=== PATIENT | male | born 2000 | race Caucasian/White ===

== ENCOUNTER 2022-08-27 20:25 | Emergency (ER) | payer OTHER, SELFPAY ==
[2022-08-27 20:38] VITALS: BP 121/70; PULSE 102; RESP 18; TEMP 36.8; O2SAT 97; BMI 25.0
--- NOTE | 2022-08-27 22:34 | ED.GENADULT ---
HPI - General Adult General Chief complaint: Wound/Laceration Stated complaint: Cut left hand Time Seen by Provider: 08/27/22 22:05 Source: patient, RN notes reviewed and old records reviewed Mode of arrival: ambulatory Limitations: no limitations History of Present Illness HPI narrative: 21-year-old male presents for evaluation of a laceration to his left hand Patient accidentally cut the back of his left hand just proximal to the order finger He cut it with a knife while fishing Unknown last tetanus He is able to move all fingers Related Data Allergies Allergy/AdvReac Type Severity Reaction Status Date / Time No Known Allergies Allergy Unverified 12/18/19 16:45 Review of Systems Integumentary/Breasts: Comments: Laceration to the back of the left hand PMFSH Social History Social History Advance Directives: No Advance Directives Information Provided: No Physical Exam ED Vital Signs: Vital Signs - 24 hr 08/27/22 20:38 Temperature 98.2 F Pulse Rate 102 H Respiratory Rate 18 Blood Pressure 121/70 Pulse Oximetry 97 Oxygen Delivery Method Room Air BMI result Body Mass Index 25.0 Const General: healthy appearing, comfortable, no acute distress, alert and awake Nutritional Appearance: well nourished Orientation/consciousness: patient oriented x3 Skin Other: Small, 2 cm curvilinear laceration to the dorsal surface of left hand just proximal to the 2nd MCP joint. General skin exam: no rashes or lesions noted and elasticity normal Neuro General: patient oriented x3 Cranial nerves: Yes Bilaterally intact EOM present Cognition (Neuro): normal cognition Extrem Other: Moving all extremities well without any obvious deformities. Notably, the patient is able to flex his left 2nd finger completely and fully extend the finger at the MCP joint Procedures Laceration Laceration 1: Site: hand Side (If applicable): left Size (cm): 2 Description: linear and clean Depth: simple, single layer Local Anesthetic: lidocaine 1% and with epi Amount of anesthesia used (mL): 1.5 Pre-repair: wound explored, irrigated extensively and deep structures intact Skin layer closed with: nylon Size (cm): 5-0 Number of sutures: 3 Technique: simple, interrupted Medical Decision Making Medical Decision Making MDM Narrative: Patient had a small laceration, this was repaired, see procedure note. Tetanus was updated as well Differential Diagnosis Laceration Skin tear Puncture wound Abrasion Discharge Plan Discharge Clinical Impression: Laceration Patient Disposition: Home, Self-Care Instructions: Laceration (ED) Additional Instructions: Keep the area clean and dry. These sutures should be removed in 7-10 days. You can make an appoint with your primary doctor or return to the ER Your tetanus was updated
[2022-08-27] MEDS: Diphth,Pertus(ACell),Tet Adult 0.5 ML SYRINGE IM (22:54)
--- NOTE | 2022-08-27 22:57 | PC.NURSE ---
tdap given right deltoid, pt tolerated well.
== END 2022-08-27 23:05 | disposition home or self-care (01) ==
PROVIDERS: Emergency Provider Emergency Medicine
DX: S61.412A Laceration without foreign body of left hand, initial encounter (principal); S60.512A Abrasion of left hand, initial encounter; W26.0XXA Contact with knife, initial encounter; Y93.9 Activity, unspecified; Y92.9 Unspecified place or not applicable; Y99.9 Unspecified external cause status; Z23 Encounter for immunization
CPT/HCPCS: 12041; 90471; 90715; 99282; 99284

== ENCOUNTER 2023-05-07 09:52 | Outpatient (AMB) | payer OTHER, SELFPAY ==
--- NOTE | 2023-05-07 11:04 | AM.OFFWIN_ITS ---
Intake Vital Signs 05/07/23 11:49 Height 5 ft 5 in Weight 71.214 kg BMI 26.1 BP 116/72 Pulse 88 Pulse Source Pulse Oximeter Temp 98.2 F Temp Source Temporal Artery Scan Pulse Oximetry (%) 99 Oxygen Delivery Method Room Air Intake Visit Reasons: EP STD testing [phone] Intake Note: pt is here today for STD Patient Tobacco Use Status: Current everyday Tobacco user Allergies No Known Allergies Allergy (Verified 05/07/23 11:50) Do you need a note to return to daycare/school/sports/work: No HPI HPI Comments History of Present Illness Details 1105 22 year old male presents requesting STD testing. ? possible encounter to chlamydia. No sx at this time. No hx of same. Normal physical exam Will rule out STD STD panel collected and pending. Educated patient on diagnosis and treatment plan, answered all question, patient verbalizes understanding. At this time patient will be discharged home, advised to return with new or worsening symptoms. Educated on worrisome signs and symptoms and when to return. At this time I feel comfortable discharge home. Patient agrees to prophylactic treatment for gonorrhea, chlamydia and trichomonas. 500mg IM ceftriaxone has been given here and scripts for doxycycline 100 mg po BID X 7 days and metronidazole 500 mg po BID X 7 days have been given to the patient. Educated on safe sex practices, full pannel STD testing and speaking to? partners on possible STD. [facility] Social History Patient Tobacco Use Status: Current everyday Tobacco user Review of Systems Const All systems reviewed & are unremarkable except as noted in HPI and below Physical Exam Vital Signs: vss Appearance: Alert.? Oriented X3.? No acute distress.? Head: Normocephalic, atraumatic, no step-offs or deformities Eyes: Pupils equal, round and reactive to light.? Neck: Normal inspection.? Neck supple.? CVS: Pulses normal.? Respiratory: No respiratory distress.? Skin: Skin warm and dry.? Normal skin color.? Normal skin turgor.? Extremities: No lower extremity edema.? No calf ttp. 5/5 strength to bilateral upper and lower extremities Neuro: Oriented X 3.? No motor deficit.? No sensory deficit. CN 2-12 intact Assessment & Plan Assessment & Plan (1) Screening for STD (sexually transmitted disease): Code(s): Z11.3 - Encounter for screening for infections with a predominantly sexual mode of transmission Plan Take your medications as prescribed. If you were prescribed antibiotics today, it is important that you take your medication to their entirety, do not skip any doses, do not finish them early. Follow-up with your primary care provider this week. Return to the emergency department with new or worsening symptoms. Such as fevers, chills, chest pain, shortness of breath, nausea, vomiting, dizziness, headache, vision changes, lethargy In case of emergency call 911 You were treated here today with ceftriaxone, a medication that treats gonorrhea. I have sent to your pharmacy Metronidazole that covers trichomonas, and Doxycycline which covers for chlamydia. Please be reevaluated by a healthcare provider after completing your antibiotics. Do not stop them early, do not skip any doses. Until you are reevaluated by a health care provider please practice safe sex as disucussed. Please also have a conversation with your sexual partners.? I also advise you to obtain full panel STD testing to test for other STDs including HIV, Hepatitis B & C and syphilis with your PCP or a local clinic. Orders: Orders CT NG by PCR Today Z11.3 - Encounter for screening for infections with a predominantly sexual mode of transmission AMB Ceftriaxone Injection Today Z11.3 - Encounter for screening for infections with a predominantly sexual mode of transmission Medications: New metronidazole 500 mg PO BID 7 days 14 tabs 0RF doxycycline hyclate 100 mg PO BID 7 days 14 caps 0RF ceftriaxone 500 mg IM ONCE 1 ea 0RF Z11.3 - Encounter for screening for infections with a predominantly sexual mode of transmission Coding Level of Care Code Est Pt Level 3 (46568) Diagnoses Screening for STD (sexually transmitted disease) Z11.3
[2023-05-07 11:49] VITALS: BP 116/72; PULSE 88; TEMP 36.8; O2SAT 99; BMI 26.1
== END 2023-05-07 12:43 | disposition home or self-care (01) ==
PROVIDERS: Visit Provider Physician Assistant
DX: Z11.3 Encounter for screening for infections with a predominantly sexual mode of transmission (principal)
CPT/HCPCS: 96372; 99213; J0696

== ENCOUNTER 2023-05-07 13:19 | Outpatient (REF) | payer OTHER, SELFPAY ==
[2023-05-07 15:29] LABS: CT PCR NOT DETECTED (Not Detect.); NG PCR NOT DETECTED (Not Detect.)
== END 2023-05-07 13:20 | disposition home or self-care (01) ==
LOC: HO.HMGCLNP 13:19
PROVIDERS: Visit Provider Physician Assistant
DX: Z20.2 Contact with and (suspected) exposure to infections with a predominantly sexual mode of transmission (principal)
CPT/HCPCS: 0353U

== ENCOUNTER 2023-05-07 16:38 | Outpatient (REF) | payer OTHER, SELFPAY | END 2023-05-07 16:39 | disposition home or self-care (01) | LOC: HO.LAB 16:38 | PROVIDERS: Visit Provider Physician Assistant | DX: Z13.89 Encounter for screening for other disorder (principal) ==

== ENCOUNTER 2023-08-14 08:06 | Emergency (ER) | payer OTHER, SELFPAY ==
--- NOTE | ~2023-08-14 | XR_ITS ---
EXAMINATION: LEFT CLAVICLE, LEFT SHOULDER CLINICAL INFORMATION: Pain after injury COMPARISON: None available. TECHNIQUE: 2 views left clavicle, 3 views left shoulder FINDINGS: There is a comminuted fracture involving the mid clavicle with a middle fragment measuring 2.9 cm in length. This fragment is angled downwards and there is separation of the most proximal and distal fragments by about 2 cm. The acromioclavicular joint appears normal. The glenohumeral joint appears normal. The scapula and visualized humerus are unremarkable. No rib fractures are visualized. XR/XR shoulder LT min 2V IMPRESSION: Comminuted mid clavicular fracture as described above.
--- NOTE | ~2023-08-14 | XR_ITS ---
EXAMINATION: LEFT CLAVICLE, LEFT SHOULDER CLINICAL INFORMATION: Pain after injury COMPARISON: None available. TECHNIQUE: 2 views left clavicle, 3 views left shoulder FINDINGS: There is a comminuted fracture involving the mid clavicle with a middle fragment measuring 2.9 cm in length. This fragment is angled downwards and there is separation of the most proximal and distal fragments by about 2 cm. The acromioclavicular joint appears normal. The glenohumeral joint appears normal. The scapula and visualized humerus are unremarkable. No rib fractures are visualized. XR/XR clavicle LT IMPRESSION: Comminuted mid clavicular fracture as described above.
[2023-08-14 08:13] VITALS: BP 131/90; PULSE 90; RESP 16; TEMP 36.6; O2SAT 97; BMI 27.0
--- NOTE | 2023-08-14 08:27 | ED.EXTPRO ---
HPI - Extremity Problem General Chief complaint: Extremity Injury, Upper Stated complaint: L Shoulder Pain Injury 08/12/23 Time Seen by Provider: 08/14/23 08:25 Source: patient Mode of arrival: ambulatory Limitations: no limitations History of Present Illness HPI Narrative: 22 yo right-hand dominant male presenting for evaluation of left shoulder pain s/p injury 2 days ago. Patient states he was play fighting on Sunday when he fell directly on his left shoulder. Denies hearing or feeling pop or crack. Denies numbness, tingling, or radiation of pain. Pain localized to left clavicular region. Patient denies any additional injuries at this time. States he may have hit the side of his face, but denies pain, headaches, or changes in vision. Denies previous injury to shoulder. Describes the pain as 8/10 and constant. He last took Tylenol last night and states it helps to relieve pain. Able to internally and externally rotate left arm, but unable to move shoulder. MD Complaint: joint pain Onset (ago): day(s) (2) Pain Consistency: constant Location: left and upper extremity Severity scale (1-10): 8 Radiation: none Relieving factors: medication (Tylenol) Associated symptoms: denies other symptoms Context: other (Trauma) Related Data Previous Rx's ?Medication ?Instructions ?Recorded doxycycline hyclate 100 mg capsule 100 mg PO BID 7 days #14 caps 05/07/23 metronidazole 500 mg tablet 500 mg PO BID 7 days #14 tabs 05/07/23 ibuprofen 600 mg tablet 600 mg PO Q8H PRN pain #14 tabs 08/14/23 Allergies Allergy/AdvReac Type Severity Reaction Status Date / Time No Known Allergies Allergy Verified 08/14/23 08:16 Review of Systems Review of Systems: Yes all other systems are reviewed and are negative [facility] Social History Social History Patient Tobacco Use Status: Current everyday Tobacco user Advance Directives: No Advance Directives Information Provided: Yes Physical Exam Vital Signs: Vital Signs: Last Vital Signs Temp 97.8 F 08/14/23 08:13 Pulse 87 08/14/23 10:47 Resp 14 08/14/23 10:47 BP 125/83 08/14/23 10:47 Pulse Ox 95 08/14/23 10:47 O2 Del Method Room Air 08/14/23 10:47 BMI result Body Mass Index 27.0 Appearance: Alert. Oriented X3. No acute distress. Head: normocephalic, atraumatic. Eyes: Pupils equal, round and reactive to light. ENT: Pharynx normal. Neck: Normal inspection. Neck supple. CVS: Normal heart rate and rhythm. Pulses normal. Respiratory: No respiratory distress. Breath sounds normal. Abdomen: Soft and nontender. Skin: Skin warm and dry. Normal skin color. Normal skin turgor. No rashes. Extremities: Edema and ecchymosis of left clavicular region. Tenderness to palpation. Able to internally and externally rotate arm, unable to perform ROM of shoulder joint. Neurovascularly intact distally Neuro/psych: Oriented X 3. No motor deficit. No sensory deficit. Normal speech and cognition. Medications Administered Discontinued Medications Generic Name Dose Route Start Last Admin Trade Name Freq PRN Reason Stop Dose Admin Ibuprofen 600 mg 08/14/23 09:21 08/14/23 09:43 Ibuprofen 600 Mg Tablet PO 08/14/23 09:22 600 mg ONCE ONE Administration Ibuprofen 600 mg 08/14/23 09:22 08/14/23 09:45 Ibuprofen 600 Mg Tablet PO 08/14/23 09:23 Not Given ONCE ONE Medical Decision Making Medical Decision Making MDM Narrative: 22 yo right-hand dominant male presenting for evaluation of left shoulder pain s/p injury 2 days ago when play fighting and landing directly on left shoulder. Describes the pain as 8/10. Denies additional injuries. Denies paresthesias. Neurovascularly intact. Clavicle x-ray showed comminuted left clavicular fracture. Patient placed in a sling and discussed the results with the patient. He will be referred to Orthopedics for likely surgical intervention. Stable for discharge home. He was instructed to call the orthopedic office today. Differential Diagnosis Differential Diagnoses: The differential diagnosis associated with the presentation includes Clavicle fracture, clavicle dislocation, anterior shoulder dislocation, humerus fracture Consult Healthcare Provider Management of the patient was discussed with: Social Work Instructor Beba CUNNINGHAM from Ortho Independent Interpretation I performed an independent interpretation of an: Plain X-Ray Interpretation: Clavicle in 3 separate pieces, agree with radiology read Radiology Impression Discussion of test interpretation with radiology: I have reviewed the radiologist's reading. Radiologist Impression: EXAMINATION: LEFT CLAVICLE, LEFT SHOULDER CLINICAL INFORMATION: Pain after injury COMPARISON: None available. TECHNIQUE: 2 views left clavicle, 3 views left shoulder FINDINGS: There is a comminuted fracture involving the mid clavicle with a middle fragment measuring 2.9 cm in length. This fragment is angled downwards and there is separation of the most proximal and distal fragments by about 2 cm. The acromioclavicular joint appears normal. The glenohumeral joint appears normal. The scapula and visualized humerus are unremarkable. No rib fractures are visualized. XR/XR shoulder LT min 2V IMPRESSION: Comminuted mid clavicular fracture as described above. External Record Review External record reviewed: Office record Prescription Management I considered prescription management with: Pain Medication Critical Care Time Critical Care Time Critical Care Time: No Discharge Plan Discharge Clinical Impression: Fracture of clavicle Qualifiers: Encounter type: initial encounter Clavicle location: shaft Fracture type: closed Fracture alignment: displaced Laterality: left Qualified Code(s): S42.022A - Displaced fracture of shaft of left clavicle, initial encounter for closed fracture Patient Disposition: Home, Self-Care Instructions: Clavicle Fracture (ED) Additional Instructions: You broke her clavicle and multiple places. Follow-up with the orthopedics. Call today to arrange an appointment. Name and number below Where the provided sling at all times unless bathing. Limit use of your left arm. Take the prescribed anti-inflammatory as needed for pain If you develop new or worsening symptoms call 911 or come back to the ER for further evaluation. Prescriptions: New ibuprofen 600 mg tablet 600 mg PO Q8H PRN (Reason: pain) Qty: 14 0RF No Action doxycycline hyclate 100 mg capsule 100 mg PO BID 7 Days Qty: 14 0RF metronidazole 500 mg tablet 500 mg PO BID 7 Days Qty: 14 0RF Referrals: [facility] [place] Orthopedic Surgeons [Provider Group] Stand Alone Forms: Work/School Release Discharge Date/Time: 08/14/23 10:59 Print Language: Portuguese
[2023-08-14] MEDS: Ibuprofen 600 MG TABLET PO (09:43)
[2023-08-14 10:47] VITALS: BP 125/83; PULSE 87; RESP 14; O2SAT 95
== END 2023-08-14 10:59 | disposition home or self-care (01) ==
PROVIDERS: Emergency Provider Emergency Medicine
DX: S42.022A Displaced fracture of shaft of left clavicle, initial encounter for closed fracture (principal); W18.39XA Other fall on same level, initial encounter; Y93.83 Activity, rough housing and horseplay; Y92.9 Unspecified place or not applicable; Y99.9 Unspecified external cause status
CPT/HCPCS: 73000; 73030; 99283

== ENCOUNTER 2023-08-20 14:24 | Outpatient (AMB) | payer OTHER, SELFPAY ==
--- NOTE | 2023-08-20 14:42 | MHC.OFFVIS ---
Vital Signs 08/20/23 14:47 Height 5 ft 6 in Weight 167 lb BMI 27.0 Intake Visit Reasons: F/C Fracture of clavicle 08/11/23 Intake Note: Medhat a 22 year old right hand dominant male who presents today for an ER follow up of left clavicle fracture, DOI 08/11/23. Patient states he was play fighting when he fell directly on his left shoulder. He presented to [facility] ED a few days later where xrays were taken and placed in a sling. Currently his pain mostly comes at night. He uses sling as needed, states discomfort in sling. Allergies No Known Allergies Allergy (Verified 08/20/23 14:49) HPI HPI F/C Fracture of clavicle 08/11/23 : Details: 22-year-old right hand dominant male who presents to the office today for an ER follow-up of left clavicle injury when he was ?playfighting? and fell directly on his left shoulder, 08/11/23. He was seen at ED on 08/14/23 where x-rays were performed and he was placed in a sling. He currently states he has pain in his shoulder that is aggravated at night. He also reports discomfort with wearing the sling and has been wearing only at night. [facility] Social History (Updated 08/20/23 @ 14:46 by JULIANO Mckeon) Patient Tobacco Use Status: Current everyday Tobacco user e-Cigarette/Vaping Use: Currently Using Current occupational status: employed Current occupation: [id number], right hand dominant Review of Systems Const All systems reviewed & are unremarkable except as noted in HPI and below Physical Exam Vital Signs: BMI result Body Mass Index 27.0 Const General: cooperative, healthy appearing, comfortable, no acute distress, well developed and alert Orientation/consciousness: patient oriented x3 HEENT Head: Yes normal to inspection, Yes normocephalic and Yes atraumatic Eyes General: appearance normal, both eyes and all related structures Neck Neck: Yes normal visual inspection and Yes no lymphadenopathy Resp Effort & Inspection: normal respiratory effort and able to speak in complete sentences Cardio Rate: regular rate Peripheral pulses: Peripheral pulses 2+ throughout GI Inspection: Yes normal to inspection Palpation (GI): Soft to palpation Skin General skin exam: no rashes or lesions noted Neuro General: patient oriented x3 Extrem Other: Left clavicle: Skin is intact. No skin tenting or skin breakdown. There is an obvious bony deformity with tenderness to palpation over the fracture site. Anterior deltoid sensation is intact. Full ROM of elbow with no pain. No pain along the forearm. Negative squeeze test. No pain along the distal radius. NVI. Psych Appearance: grossly normal Mental Status: mental status grossly normal Results Reviewed Results Reviewed: Xrays were obtained in the office today and personally reviewed by me of the left clavicle show superiorly displaced and shortened mid shaft clavicle fracture Assessment & Plan Assessment & Plan (1) Fracture of clavicle: Code(s): S42.009A - Fracture of unspecified part of unspecified clavicle, initial encounter for closed fracture Category: Medical Qualifiers: Clavicle location: shaft Encounter type: initial encounter Fracture alignment: displaced Fracture type: closed Laterality: left Qualified Code(s): S42.022A - Displaced fracture of shaft of left clavicle, initial encounter for closed fracture Plan I evaulated the patient. We discussed the extent of the injury to the patient and options available. Given the extent of the fracture pattern and risk of further displacement, it is recommended that we procedure with surgical intervention to help with stability and restoring anatomy. We explained to the patient the procedure in detail along with the risks, benefits and alternatives.? Risks including but not limited to infection, wound breakdown, stiffness, ongoing pain, nonunion or malunion, and possible complications with hardware. He does understand all this and would like to take the time to think about the options. Non operative treatment would consist of sling x4 weeks with no heavy lifting, reaching, pushing or pulling greater than a cell phone. He did express understanding and will f/u in 4 weeks with xrays. If he does wish to pursue surgical intervention, he will contact our office for open reduction internal fixation of the left clavicle with Dr. Lanier. Of note, fracture care was not billed today as pending surgical decision to determine next step in care. Orders: Orders XR clavicle LT 08/20/23 M89.8X1 - Other specified disorders of bone, shoulder XR calcaneus LT min 2V 08/20/23 S92.002A - Unspecified fracture of left calcaneus, initial encounter for closed fracture Patient Instructions: Scribed for Van-Wendy Vazquez PA-C, by jorge alberto Johnson scribe, on 08/20/2023 at 2:15 PM EST.? I, Igor Vazquez PA-C, have personally reviewed and agree with the information entered by the scribe. Coding Level of Care Code New Pt Level 4 (35277) Diagnoses Fracture of clavicle S42.022A Clavicle location: shaft Encounter type: initial encounter Fracture alignment: displaced Fracture type: closed Laterality: left
[2023-08-20 14:47] VITALS: BMI 27.0
== END 2023-08-20 15:32 | disposition home or self-care (01) ==
PROVIDERS: Visit Provider Physician Assistant
DX: S42.022A Displaced fracture of shaft of left clavicle, initial encounter for closed fracture (principal)
CPT/HCPCS: 99204

== ENCOUNTER 2023-08-20 14:33 | Outpatient (REF) | payer OTHER, SELFPAY ==
--- NOTE | ~2023-08-20 | XR_ITS ---
EXAMINATION: XR CLAVICLE, LEFT CLINICAL INFORMATION: Other specified disorders of bone and shoulder. COMPARISON: 08/14/2023 TECHNIQUE: 2 views of the left clavicle. FINDINGS: Redemonstration of a comminuted fracture involving the mid clavicle with a metal fragment measuring 3 cm in length. This middle fracture fragment remains angled in a caudad direction along the lateral aspect. Continued separation of most proximal and most distal clavicle fragments. Acromioclavicular and glenohumeral alignment appears maintained on views provided. XR/XR clavicle LT IMPRESSION: Redemonstration of comminuted fracture involving the mid clavicle with a metal fragment measuring 3 cm in length. This middle fracture fragment remains angled in a caudad direction along the lateral aspect.
== END 2023-08-20 14:34 | disposition home or self-care (01) ==
LOC: HO.HOSX 14:33
PROVIDERS: Visit Provider Physician Assistant
DX: S42.022A Displaced fracture of shaft of left clavicle, initial encounter for closed fracture (principal)
CPT/HCPCS: 73000; 99202

== ENCOUNTER 2023-09-17 13:00 | Outpatient (REF) | payer OTHER, SELFPAY | END 2023-09-17 13:01 | disposition home or self-care (01) | LOC: HO.HOSX 13:00 | PROVIDERS: Visit Provider Physician Assistant | DX: Z13.89 Encounter for screening for other disorder (principal) ==

== ENCOUNTER 2023-09-27 16:11 | Emergency (ER) | payer SELFPAY | END 2023-09-27 18:39 | disposition left against medical advice (07) | PROVIDERS: Emergency Provider Emergency Medicine | DX: N50.89 Other specified disorders of the male genital organs (principal) ==

== ENCOUNTER 2023-09-30 11:11 | Emergency (ER) | payer SELFPAY ==
[2023-09-30 11:17] VITALS: BP 119/80; PULSE 88; RESP 16; TEMP 36.7; O2SAT 97; BMI 27.4
--- NOTE | 2023-09-30 11:30 | ED.GENADULT ---
HPI - General Adult General Chief complaint: General Medical Stated complaint: Facial swelling, discomfort genital area Time Seen by Provider: 09/30/23 11:55 Source: patient and RN notes reviewed Mode of arrival: ambulatory Limitations: no limitations History of Present Illness ED Provider: Bhakti Estrada PA-C [facility] narrative: This is a 22-year-old male, with no known medical problems, who presents emergency department with complaints of left lower dental pain and left-sided facial swelling since yesterday. He also states that he noticed a red dot on the tip of his penis 3 days ago. Patient states that he is sexually active with his girlfriend. He states that his girlfriend is recently diagnosed with bacterial vaginosis. He states that the dot was slightly itchy, denies any pain. Has known history of any sexually transmitted infections. He states that he woke up yesterday with slight swelling and pain to his left lower jaw. He denies any fevers, chills, chest pain, shortness breath, abdominal pain, nausea, vomiting or diarrhea. No urinary symptoms. He reports slight white drainage from his penis. No other complaints or concerns at this time. MD complaint: Dental pain, facial swelling, genital issue Onset (ago): day(s) Relieving factors: none Exacerbating factors: none Associated symptoms: denies other symptoms Treatments prior to arrival: none Related Data Previous Rx's ?Medication ?Instructions ?Recorded doxycycline hyclate 100 mg capsule 100 mg PO BID 7 days #14 caps 05/07/23 metronidazole 500 mg tablet 500 mg PO BID 7 days #14 tabs 05/07/23 ibuprofen 600 mg tablet 600 mg PO Q8H PRN pain #14 tabs 08/14/23 amoxicillin 875 mg-potassium 1 tab PO BID 7 days #14 tabs 09/30/23 clavulanate 125 mg tablet Allergies Allergy/AdvReac Type Severity Reaction Status Date / Time No Known Allergies Allergy Verified 09/30/23 11:17 Review of Systems Review of Systems: Yes all other systems are reviewed and are negative Constitutional: Constitutional: Reports as per [facility] Social History Social History (Updated 08/20/23 @ 14:46 by Chelle Ta Dana) Patient Tobacco Use Status: Current everyday Tobacco user e-Cigarette/Vaping Use: Currently Using Advance Directives: No Advance Directives Information Provided: Yes Do you have a plan to hurt others: No Plan Current occupational status: employed Current occupation: [employer], right hand dominant Physical Exam ED Vital Signs: Vital Signs - 24 hr 09/30/23 11:17 09/30/23 14:03 Temperature 98.0 F 98.0 F Pulse Rate 88 88 Respiratory Rate 16 16 Blood Pressure 119/80 119/80 Pulse Oximetry 97 97 Oxygen Delivery Method Room Air Room Air BMI result Body Mass Index 27.4 Const General: cooperative, comfortable and no acute distress Orientation/consciousness: patient oriented x3 Limitations: no limitations HENMT Other: Left lower mandibular region with obvious left sided facial swelling, no overlying skin changes or warmth. TTP. Able to fully open and close jaw. Head: Yes normal to inspection, Yes normocephalic and Yes atraumatic Ears: hearing grossly normal bilaterally General nose exam: Normal external nose present Face and sinus: Yes normal facial exam Mouth: Normal oral and palatal mucosa present, oropharynx normal and moist mucous membranes Teeth image: 1. TTP with slight decay noted. TTP overlying tooth #20 with referred pain to other regions. No discrete abscess or mass. Throat: Yes posterior oropharynx normal Eyes General: appearance normal, both eyes and all related structures Eyelids: Yes eyelids normal Conjunctivae: conjunctivae normal Sclerae: sclerae normal Pupils: Equal, round and reactive pupils present EOM: EOMs intact bilaterally Neck Neck: Yes normal visual inspection, Yes full ROM and Yes no lymphadenopathy Lymphatic: no lymphadenopathy noted Chest Chest palpation & inspection: normal inspection of the chest Resp Effort & Inspection: normal respiratory effort and able to speak in complete sentences Auscultation: clear to auscultation bilaterally, no crackles, no rales, no rhonchi and no wheezes Cardio Rate: regular rate Rhythm: regular rhythm Heart sounds: S1 normal heart sound present and S2 normal heart sound present GI Inspection: Yes normal to inspection Other: exam performed with Simona Lawrence LPN present. Uncircumsized male genitalia with no erythema or edema. Foreskin easily retracted, no lesion present. No drainage noted from urethral meatus Skin General skin exam: no rashes or lesions noted Trauma: no lacerations or abrasions Wounds: no wounds Neuro General: patient oriented x3 and moves all extremities Cranial nerves: Yes Equal, round and reactive pupils present Extrem General: Yes normal to inspection Right upper extremity: normal to inspection Left upper extremity: normal to inspection Right lower extremity: normal to inspection Left lower extremity: normal to inspection Course Course Course Narrative: This is a rapid medical exam. Deferred additional HPI, ROS, PE to primary provider. 22 yo male with no known medical history here with left lower facial/swelling with dental pain since yesterday. Also concerned in regards to irritation/redness to the tip of his penis. Will send CT NG testing. -Krystal Crockett APRN Medical Decision Making Medical Decision Making MDM Narrative: 22 y.o M, with no known medical problems, who presents to the ER with complaints of left sided facial pain and swelling and lesion on tip of penis x 3 days. On arrival, pt nontoxic appearing. He has TTP overlying left lower dentition with decay noted. No obvious dental abscess noted. examination with no abnormalities present. Given lesion no longer on exam, will draw for RPR to ensure this was not a primary presentation. Will tx dental pain with abx, tylenol and motrin. Given dental clinic list. Given return precautions, stable for d/c. Differential Diagnosis Differential Diagnoses: The differential diagnosis associated with the presentation includes facial pain, abscess, fx, genital lesion, syphilis, STI Lab Data Labs: Lab Results 09/30/23 Range/Units 11:42 Chlam trachomat DNA PCR NOT DETECTED (Not Detect.) N.gonorrhoeae DNA (PCR) NOT DETECTED (Not Detect.) Discharge Plan Discharge Clinical Impression: Facial swelling, Dental caries Patient Disposition: Home, Self-Care Instructions: Toothache (ED) Additional Instructions: You were seen in the emergency department due to left-sided facial pain. You were also seen here due to a genital lesion. This was not visualized on examination. We tested you for gonorrhea, chlamydia and syphilis. You did not want treatment today We will call you if any of these results come back positive. If these are positive you must return for treatment. You also have a dental infection, please take prescribed antibiotic as directed. Finish the entire course even if your feeling better. Follow-up with the dentist. If any new or worsening symptoms occur including but not limited to fevers, chills, worsening swelling, worsening dental pain, please return for re-evaluation. Prescriptions: New amoxicillin-pot clavulanate 875-125 mg tablet 1 tab PO BID 7 Days Qty: 14 0RF No Action ibuprofen 600 mg tablet 600 mg PO Q8H PRN (Reason: pain) Qty: 14 0RF doxycycline hyclate 100 mg capsule 100 mg PO BID 7 Days Qty: 14 0RF metronidazole 500 mg tablet 500 mg PO BID 7 Days Qty: 14 0RF Interventions: ED Discharge Assessment Last Done: 09/30/23 14:03 Discharge Date/Time: 09/30/23 14:03 Print Language: Turkish
[2023-09-30 13:14] LABS: CT PCR NOT DETECTED (Not Detect.); NG PCR NOT DETECTED (Not Detect.)
[2023-09-30 14:03] VITALS: BP 119/80; PULSE 88; RESP 16; TEMP 36.7; O2SAT 97
[2023-10-01 03:33] LABS: Syphilis Screen Nonreactive (Nonreactive)
== END 2023-09-30 14:03 | disposition home or self-care (01) ==
PROVIDERS: Nurse Practitioner Family; Physician Assistant Medical; Emergency Provider Emergency Medicine
DX: R51.9 Headache, unspecified (principal); N50.812 Left testicular pain; K02.9 Dental caries, unspecified; Z79.899 Other long term (current) drug therapy
CPT/HCPCS: 36415; 86780; 87491; 87591; 99282; 99283